=== PATIENT | male | born 1965 | race Caucasian/White ===

== ENCOUNTER 2018-05-05 07:43 | Emergency (ER) | payer OTHER ==
[~2018-05-05] VITALS: Ht 170.2 cm; Wt 58.7 kg
--- NOTE | 2018-05-05 07:48 | NUR ---
PT AMBULATES TO BED 7
[2018-05-05 07:50] VITALS: BP 116/81
--- NOTE | 2018-05-05 07:55 | NUR ---
PT C/O LLQ PAIN SINCE SUNDAY; DENIES N/V/D; WAS DX WITH LT INGUINAL HERNIA BEGINNING OF THE YEAR. PATIENT STATES HE NEEDS A NOTE STATING MODIFICATIONS FOR WORK. PATIENT STATES PAIN 8/10, INTERMITTENT. VSS; PATIENT POSITIONED FOR COMFORT; HOB ELEVATED; BEDRAILS UP X1; BED DOWN. ER MD MADE AWARE OF PT STATUS.
--- NOTE | 2018-05-05 07:55 | NUR ---
Patient being evaluated by physician at bedside.
[2018-05-05] MEDS ORDERED: KETOROLAC 60 MG/2 ML VIAL IM ONE (08:00)
[2018-05-05 08:47] VITALS: BP 116/81
--- NOTE | 2018-05-05 08:48 | NUR ---
Patient discharged with v/s stable. Written and verbal after care instructions given and explained. Patient alert, oriented and verbalized understanding of instructions. Ambulatory with steady gait. All questions addressed prior to discharge. ID band removed. Patient advised to follow up with PMD. Rx of MOTRIN AND NORCO given. Patient educated on indication of medication including possible reaction and side effects. Opportunity to ask questions provided and answered.
== END 2018-05-05 08:48 | disposition home or self-care (01) ==
LOC: MED 07:43
DX: K40.90 Unilateral inguinal hernia, without obstruction or gangrene, not specified as recurrent (principal)
CPT/HCPCS: 96372; 99283; J1885

== ENCOUNTER 2018-06-16 07:56 | Emergency (ER) | payer OTHER ==
[~2018-06-16] VITALS: Ht 177.8 cm; Wt 57.7 kg
[2018-06-16 08:10] VITALS: BP 151/71
--- NOTE | 2018-06-16 08:11 | NUR ---
PT AMBULATES TO BED 4
--- NOTE | 2018-06-16 08:20 | NUR ---
Patient being evaluated by physician at bedside.
--- NOTE | 2018-06-16 08:20 | NUR ---
C/O INTERMITTENT, NON RADIATING EPIGASTRIC PAIN X 5DAYS WITH NAUSEA; DENIES V/D OR DIZZINESS; WAS SEEN ON 05/05/18 FOR INGUINAL HERNIA, AND 08/22/2017 FOR GERD . DENIES /V/D; SKIN IS PINK/WARM/DRY; AAOX4 WITH EVEN AND STEADY GAIT; LUNGS CLEAR BL; HR EVEN AND REGULAR; PT DENIES ANY FEVER, CP, SOB, OR COUGH AT THIS TIME; PATIENT STATES PAIN OF 8/10 AT THIS TIME; VSS; PATIENT POSITIONED FOR COMFORT; HOB ELEVATED; BEDRAILS UP X2; BED DOWN. ER MD MADE AWARE OF PT STATUS.
[2018-06-16] MEDS ORDERED: ALUMINUM HYD/MAG/SIMETHICONE 30 ML, DICYCLOMINE HCL LIQUID 20 MG, LIDOCAINE VISCOUS 2% ... PO ONE ×3 (08:25)
[2018-06-16 08:49] LABS: BASOPHILS % (AUTO) 0.6 % (0.0-2.0); EOSINOPHILS # (AUTO) 0.1 K/uL (0-0.4); HEMATOCRIT 42.7 % (36-52); HEMOGLOBIN 14.4 g/dL (12.0-18.0); LYMPHOCYTES # (AUTO) 1.3 K/uL (2.0-11.5); LYMPHOCYTES % (AUTO) 38.6 % (20.5-51.1); MEAN CORPUSCULAR HEMOGLOBIN 31 pg (27-31); MEAN CORPUSCULAR HGB CONC 34 g/dL (33-37); MEAN CORPUSCULAR VOLUME 92.7 fL (80-94); MONOCYTES # (AUTO) 0.2 K/uL (0.8-1.0); MONOCYTES % (AUTO) 4.6 % (1.7-9.3); NEUTROPHILS # (AUTO) 1.8 K/uL (1.8-7.7); NEUTROPHILS % (AUTO) 53.2 % (42.2-75.2); PLATELET COUNT (AUTO) 299 K/uL (140-450); RED BLOOD CELL COUNT(AUTO) 4.61 MIL/uL (4.20-6.10); RED CELL DISTRIBUTION WIDTH 13.5 % (11.6-13.7); WHITE BLOOD COUNT (AUTO) 3.4 K/uL (4.8-10.8)
[2018-06-16 09:05] LABS: ALBUMIN 3.5 g/dL (3.4-5.0); ANION GAP 9.1 (8-16); CARBON DIOXIDE 31.2 mmol/L (21-32); POTASSIUM 5.3 mmol/L (3.5-5.1); TOTAL BILIRUBIN 0.3 mg/dL (0.0-1.0)
--- NOTE | 2018-06-16 09:32 | NUR ---
12 LEAD EKG DONE, DR. CHIRINOS MADE AWARE.
[2018-06-16 09:55] VITALS: BP 138/70
--- NOTE | 2018-06-16 09:56 | NUR ---
Patient discharged with v/s stable. Written and verbal after care instructions given and explained. Patient alert, oriented and verbalized understanding of instructions. Ambulatory with steady gait. All questions addressed prior to discharge. ID band removed. Patient advised to follow up with PMD. Rx of ZOFRAN, RZNITIDINE AND MAALOX given. Patient educated on indication of medication including possible reaction and side effects. Opportunity to ask questions provided and answered.
== END 2018-06-16 09:56 | disposition home or self-care (01) ==
LOC: MED 07:56
DX: K29.70 Gastritis, unspecified, without bleeding (principal); G47.00 Insomnia, unspecified; E87.5 Hyperkalemia; K21.9 Gastro-esophageal reflux disease without esophagitis
CPT/HCPCS: 36415; 80053; 83690; 85025; 93005; 99284

== ENCOUNTER 2019-01-07 09:12 | Emergency (ER) | payer OTHER ==
[~2019-01-07] VITALS: Ht 170.2 cm; Wt 59.0 kg
[2019-01-07 09:18] VITALS: BP 149/105
--- NOTE | 2019-01-07 09:24 | NUR ---
PT AMBULATED TO BED 12
--- NOTE | 2019-01-07 09:26 | NUR ---
53/M BIB SELF C/O N/V, GENERALIZED ABDOMINAL PAIN X 2 DAYS. LAST BM NORMAL YESTERDAY MORNING. MED HX: L HERNIA SURGERY LAST MONTH.ABDOMEN :SOFT. PATIENT STATES PAIN OF 7/10 AT THIS TIME; VSS; PATIENT POSITIONED FOR COMFORT; HOB ELEVATED; BEDRAILS UP X1; BED DOWN. ER MD MADE AWARE OF PT STATUS.
--- NOTE | 2019-01-07 09:26 | NUR ---
Note undone in EDM - 01/07/19 at 0928 by [email or web address] 53/M BIB SELF C/O N/V, GENERALIZED ABDOMINAL PAIN X 2 DAYS. LAST BM NORMAL YESTERDAY MORNING. MED HX: L HERNIA SURGERY LAST MONTH.ABDOMEN :SOFR. PATIENT STATES PAIN OF 7/10 AT THIS TIME; VSS; PATIENT POSITIONED FOR COMFORT; HOB ELEVATED; BEDRAILS UP X1; BED DOWN. ER MD MADE AWARE OF PT STATUS.
--- NOTE | 2019-01-07 09:46 | NUR ---
Patient being evaluated by DR FORRESTER at bedside.
[2019-01-07] MEDS ORDERED: FAMOTIDINE 20 MG TAB PO ONE (09:50)
[2019-01-07] MEDS ORDERED: ONDANSETRON 4 MG ODT PO ONE (09:50)
[2019-01-07 10:30] VITALS: BP 149/93
--- NOTE | 2019-01-07 10:30 | NUR ---
Patient discharged with v/s stable. Written and verbal after care instructions given and explained. Patient alert, oriented and verbalized understanding of instructions. Ambulatory with steady gait. All questions addressed prior to discharge. ID band removed. Patient advised to follow up with PMD. Rx of zOFRAN & OMEPRAZOLE given. Patient educated on indication of medication including possible reaction and side effects. Opportunity to ask questions provided and answered.
== END 2019-01-07 10:30 | disposition home or self-care (01) ==
LOC: MED 09:12
DX: K29.70 Gastritis, unspecified, without bleeding (principal); F17.200 Nicotine dependence, unspecified, uncomplicated; R03.0 Elevated blood-pressure reading, without diagnosis of hypertension; Z71.6 Tobacco abuse counseling; Z98.890 Other specified postprocedural states
CPT/HCPCS: 99283; Q0162

== ENCOUNTER 2021-12-26 17:09 | Emergency (ER) | payer OTHER ==
[~2021-12-26] VITALS: Ht 167.6 cm; Wt 57.6 kg
[2021-12-26 17:27] VITALS: BP 126/74
[2021-12-26] MEDS ORDERED: ONDANSETRON 4 MG ODT PO ONE (17:45)
[2021-12-26 18:02] LABS: BASOPHILS % (AUTO) 0.4 % (0.0-2.0); EOSINOPHILS # (AUTO) 0.1 K/uL (0-0.4); EOSINOPHILS % (AUTO) 2.1 % (0.0-4.0); HEMATOCRIT 44.3 % (36-52); HEMOGLOBIN 15.1 g/dL (12.0-18.0); LYMPHOCYTES # (AUTO) 1.6 K/uL (2.0-11.5); LYMPHOCYTES % (AUTO) 22.4 % (20.5-51.1); MEAN CORPUSCULAR HEMOGLOBIN 30 pg (27-31); MEAN CORPUSCULAR HGB CONC 34 g/dL (33-37); MEAN CORPUSCULAR VOLUME 89.2 fL (80-94); MONOCYTES # (AUTO) 0.6 K/uL (0.8-1.0); MONOCYTES % (AUTO) 8.3 % (1.7-9.3); NEUTROPHILS # (AUTO) 4.6 K/uL (1.8-7.7); NEUTROPHILS % (AUTO) 66.8 % (42.2-75.2); PLATELET COUNT (AUTO) 328 K/uL (140-450); RED BLOOD CELL COUNT(AUTO) 4.97 MIL/uL (4.20-6.10); RED CELL DISTRIBUTION WIDTH 13.6 % (11.6-13.7); WHITE BLOOD COUNT (AUTO) 6.9 K/uL (4.8-10.8)
[2021-12-26 18:17] LABS: ANION GAP 9.8 (8-16); CARBON DIOXIDE 30.5 mmol/L (21-32); CREATININE 1.4 mg/dL (0.6-1.3); POTASSIUM 3.3 mmol/L (3.5-5.1)
[2021-12-26 18:22] LABS: ALBUMIN 3.8 g/dL (3.4-5.0); TOTAL BILIRUBIN 0.5 mg/dL (0.0-1.0)
--- NOTE | 2021-12-26 18:38 | NUR ---
DR. KOLB AT BEDSIDE EVALUATING PATIENT.
--- NOTE | 2021-12-26 18:49 | NUR ---
56 Y/O MALE BIB SELF WITH C/O ABDOMINAL PAIN. PER PATIENT HE THINKS HE HAS FOOD POISONING. PATIENT HAS NAUSEA, VOMITING AND DIARRHEA X 1 DAY. DENIES BEING AROUND ANYONE WHO IS SICK. DENIES FEVERS OR CHILLS. MEDICAL HISTORY: DENIES NKDA
[2021-12-26] MEDS ORDERED: DICYCLOMINE HCL LIQUID 20 MG, ALUMINUM HYD/MAG/SIMETHICONE 30 ML, LIDOCAINE VISCOUS 2% ... PO ONE ×3 (18:55)
[2021-12-26] MEDS ORDERED: FAMOTIDINE 20 MG TAB PO ONE (18:55)
[2021-12-26] MEDS ORDERED: ALUMINUM HYD/MAG/SIMETHICONE 30 ML UDC ONE (19:00)
[2021-12-26] MEDS ORDERED: DICYCLOMINE HCL LIQUID 10 MG/5 ML UDC ONE (19:01)
[2021-12-26] MEDS ORDERED: POTASSIUM CHLORIDE 10 MEQ TABER PO ONE (19:15)
--- NOTE | 2021-12-26 19:18 | NUR ---
Pt report given to REINIER PRICE. Transfer of care at this time.
[2021-12-26] MEDS ORDERED: [UNRECOGNIZED DRUG - CODE] PO (19:20)
[2021-12-26] MEDS ORDERED: ONDA-188 PO (19:20)
[2021-12-26] MEDS ORDERED: BEN10 PO (19:20)
[2021-12-26 20:20] VITALS: BP 126/74
--- NOTE | 2021-12-26 20:21 | NUR ---
Patient discharged with v/s stable. Written and verbal after care instructions given and explained. Patient alert, oriented and verbalized understanding of instructions. Ambulatory with steady gait. All questions addressed prior to discharge. ID band removed. Patient advised to follow up with PMD. Rx of BENTYL, PINK BISMUTH AND ZOFRAN given. Patient educated on indication of medication including possible reaction and side effects. Opportunity to ask questions provided and answered.WORK NOTE PROVIDED.
== END 2021-12-26 20:21 | disposition home or self-care (01) ==
LOC: MED 17:09
DX: A08.4 Viral intestinal infection, unspecified (principal); K21.9 Gastro-esophageal reflux disease without esophagitis; Z98.890 Other specified postprocedural states
CPT/HCPCS: 36415; 80053; 83690; 85025; 99284; Q0162

== ENCOUNTER 2022-02-13 15:59 | Emergency (ER) | payer OTHER ==
[~2022-02-13] VITALS: Ht 170.2 cm; Wt 68.0 kg
[~2022-02-13 15:59] MED LIST: BEN10 PO; ONDA-188 PO; [UNRECOGNIZED DRUG - CODE] PO
[2022-02-13 16:24] VITALS: BP 121/62
--- NOTE | 2022-02-13 16:55 | NUR ---
PA EPSTEIN EVALUATING PT AT THIS TIME
--- NOTE | 2022-02-13 17:00 | NUR ---
PT BIB SELF C/O R SIDED FACIAL PAIN AND SWELLING X 1DAY. NEG-INJURY/TRAUMA. PT REPORTS INCREASED PAIN WITH CHEWING. DENIES DENTAL COMPLAINTS. DENIES FEVER/CHILLS.
[2022-02-13] MEDS ORDERED: AMOX1TAB8 PO (17:07)
[2022-02-13] MEDS ORDERED: CHLO473S62 PO (17:07)
[2022-02-13] MEDS ORDERED: IBUP-2213 PO (17:07)
--- NOTE | 2022-02-13 17:36 | NUR ---
Patient discharged with v/s stable. Written and verbal after care instructions given and explained. Patient alert, oriented and verbalized understanding of instructions. Ambulatory with steady gait. All questions addressed prior to discharge. ID band removed. Patient advised to follow up with PMD. Rx of AMOX-CLAV,PERIDEX given. Patient educated on indication of medication including possible reaction and side effects. Opportunity to ask questions provided and answered.
[2022-02-13 17:41] VITALS: BP 119/60
== END 2022-02-13 17:36 | disposition home or self-care (01) ==
LOC: MED 15:59
DX: R22.0 Localized swelling, mass and lump, head (principal); K21.9 Gastro-esophageal reflux disease without esophagitis; Z79.899 Other long term (current) drug therapy
CPT/HCPCS: 99283